=== PATIENT | female | born 1970 | race Caucasian/White ===

== ENCOUNTER 2019-05-18 07:53 | Outpatient (CLI) | payer BC, SELFPAY ==
--- NOTE | 2019-05-18 08:48 | MM_ITS ---
WS: [id number] SCREENING DIGITAL MAMMOGRAM WITH CAD HISTORY: HX OF BREAST CA COMPARISON: 05/24/2017, 04/06/2016. Bilateral CC and MLO views submitted. Computer aided detection analyzed. Breast composition: The breasts are heterogeneously dense, which may obscure small masses. Asymmetry in the inferior LEFT breast seen on the lateral projection measures 5.6 mm. Margins are irr egular and slightly lobulated. May be superimposed fibroglandular tissue. LEFT breast: Spot compression views ( MLO). True ML. Ultrasound to follow if abnormality persists. MM/[place] [id number] IMPRESSION: BI-RADS: 0-Incomplete: Need additional imaging evaluation FOLLOW UP: Need Additional Imaging
== END 2019-05-18 07:54 | disposition home or self-care (01) ==
LOC: RADSHAW 07:59
PROVIDERS: PCP Nurse Practitioner Family; Visit Provider Internal Medicine Medical Oncology
DX: Z85.3 Personal history of malignant neoplasm of breast (principal)
CPT/HCPCS: 77066

== ENCOUNTER 2019-05-31 10:52 | Outpatient (CLI) | payer BC, SELFPAY ==
--- NOTE | 2019-05-31 11:03 | US_ITS ---
WS: [id number] ADDITIONAL VIEWS LEFT MAMMOGRAM LEFT BREAST ULTRASOUND HISTORY: ABNORMAL MAMMOGRAM COMPARISON: 05/18/2019, 05/24/2017, 04/06/2016 and 04/05/2015 LEFT MAMMOGRAM: Spot compression views and true ML. The asymmetry seen in the inferior LEFT breast on the MLO projection persists but does appear less co ncerning. Not definitely seen on the CC projections. Postsurgical scar in the superior portion of the LEFT breast is stable. LEFT BREAST ULTRASOUND 2-D and color Doppler imaging submitted. Ultrasound is directed to the inferior LEFT breast in both the medial and lateral quadrants. No abnor mality is noted within the inferior LEFT breast. US/US breast LT limited* [id number] IMPRESSION: BI-RADS: 2-Benign FOLLOW UP: 1 Year Follow-up The asymmetry seen in the inferior LEFT breast on the MLO projection only does not persist. No abnormality seen by ultrasound either.
== END 2019-05-31 10:53 | disposition home or self-care (01) ==
LOC: ONCMED 10:56
PROVIDERS: PCP Nurse Practitioner Family; Visit Provider Internal Medicine Medical Oncology
DX: R92.8 Other abnormal and inconclusive findings on diagnostic imaging of breast (principal)
CPT/HCPCS: 76642; 77065

== ENCOUNTER 2020-08-28 08:22 | Outpatient (CLI) | payer OTHER, SELFPAY ==
--- NOTE | 2020-08-28 09:12 | MM_ITS ---
WS: [id number] BILATERAL DIAGNOSTIC DIGITAL MAMMOGRAM WITH CAD HISTORY: HX OF BREAST CA COMPARISON: 05/31/2019, 05/24/2017 Bilateral CC, ML and MLO views submitted. Computer aided detection analyzed. Breast composition: There are scattered areas of fibroglandular density. No suspicious masses, microc alcifications or architectural distortion. Postsurgical changes and volume loss in the posterior uppe r LEFT breast. No new or increasing mass or calcification. Stable appearance of the breasts. MM/[place] [id number] IMPRESSION: BI-RADS: 2-Benign FOLLOW UP: 1 Year Follow-up
== END 2020-08-28 08:23 | disposition home or self-care (01) ==
LOC: RADSHAW 08:27
PROVIDERS: PCP Nurse Practitioner Family; Visit Provider Nurse Practitioner Family
DX: Z85.3 Personal history of malignant neoplasm of breast (principal)
CPT/HCPCS: 77066

== ENCOUNTER → 2021-10-15 10:01 | Outpatient (BNVA) | payer OTHER, SELFPAY | PROVIDERS: PCP Nurse Practitioner Family; Visit Provider Emergency Medicine | DX: S92.511A Displaced fracture of proximal phalanx of right lesser toe(s), initial encounter for closed fracture (principal); X58.XXXA Exposure to other specified factors, initial encounter | CPT/HCPCS: 73630 ==

== ENCOUNTER 2021-10-22 11:29 | Outpatient (CLI) | payer OTHER, SELFPAY ==
--- NOTE | 2021-10-22 11:38 | MM_ITS ---
WS: [id number] Exam: [place] [id number] Date/Time of Exam: 10/22/2021 11:38 AM Reason For Exam: HX OF BREAST CA VIEWS: MLO, CC, and ML views both breasts. 3D digital tomosynthesis is also included in this exam. C omparison with previous exams 04/05/2015, 04/06/2016, 05/24/2017, 05/18/2019. Findings: There was no sign of mass, architectural distortion or suspicious calcification in either breast. He terogeneously [place] MM/[place] [id number] Impression: BI-RADS: 2-Benign FOLLOW-UP: 1 Year Follow-up This mammogram was also analyzed by the Computer Aided Detection System R2 Imag e Barrel Filler.
== END 2021-10-22 11:30 | disposition home or self-care (01) ==
LOC: RAD 11:30
PROVIDERS: PCP Nurse Practitioner Family; Visit Provider Nurse Practitioner Family
DX: Z85.3 Personal history of malignant neoplasm of breast (principal)
CPT/HCPCS: 77062

== ENCOUNTER → 2022-05-06 10:32 | Outpatient (BNVA) | payer OTHER, SELFPAY | PROVIDERS: PCP Nurse Practitioner Family; Visit Provider Emergency Medicine | DX: M79.645 Pain in left finger(s) (principal) | CPT/HCPCS: 73140 ==

== ENCOUNTER → 2022-06-29 09:00 | Outpatient (BNVA) | payer OTHER, SELFPAY | PROVIDERS: PCP Nurse Practitioner Family; Visit Provider Nurse Practitioner Family | DX: M25.572 Pain in left ankle and joints of left foot (principal); W19.XXXA Unspecified fall, initial encounter; Y92.009 Unspecified place in unspecified non-institutional (private) residence as the place of occurrence of the external cause; M53.3 Sacrococcygeal disorders, not elsewhere classified; M25.551 Pain in right hip; M25.571 Pain in right ankle and joints of right foot | CPT/HCPCS: 72100; 73502; 73610 ==

== ENCOUNTER → 2022-07-29 09:41 | Outpatient (BNVA) | payer OTHER, SELFPAY | PROVIDERS: PCP Nurse Practitioner Family; Visit Provider Nurse Practitioner Family | DX: I10 Essential (primary) hypertension (principal); M25.571 Pain in right ankle and joints of right foot; G89.29 Other chronic pain; W19.XXXD Unspecified fall, subsequent encounter; Y92.009 Unspecified place in unspecified non-institutional (private) residence as the place of occurrence of the external cause | CPT/HCPCS: 80053; 85025 ==

== ENCOUNTER → 2022-10-19 08:06 | Outpatient (BNVA) | payer OTHER, SELFPAY | PROVIDERS: PCP Nurse Practitioner Family; Referring Provider Anesthesiology Pain Medicine; Visit Provider Specialist | DX: M16.11 Unilateral primary osteoarthritis, right hip (principal) | CPT/HCPCS: 73502 ==

== ENCOUNTER 2022-10-26 08:25 | Outpatient (CLI) | payer OTHER, SELFPAY ==
--- NOTE | 2022-10-26 08:49 | MM_ITS ---
WS: [id number] DIAGNOSTIC BILATERAL DIGITAL BREAST TOMOSYNTHESIS MAMMOGRAPHY WITH CAD HISTORY: Z12.39 - Encounter for other screening for malignant neoplasm... COMPARISON: 10/22/2021, 08/28/2020, 05/31/2019 TECHNIQUE: Bilateral craniocaudad, mediolateral oblique, and mediolateral views are submitted with to mosynthesis and SM. Computer aided detection utilized. Breast composition: The breasts are heterogeneously dense, which may obscure small masses. Postsurgic al changes are noted in the LEFT breast towards the upper outer and posterior breast. Similar to stud y from 05/31/2019. There is an area of mild architectural distortion noted in the RIGHT breast only on the MLO projection. This is in the posterior superior breast near 12:00 and needs further evaluation. MM/[place] [id number] IMPRESSION: BI-RADS: 0-Incomplete: Need additional imaging evaluation FOLLOW UP: Need Additional Imaging RIGHT breast: Spot compression views (attempt posterior CC at 12:00 and MLO). Evangelista FRASER. Ultrasound to follow if abnormality persists.
== END 2022-10-26 08:26 | disposition home or self-care (01) ==
PROVIDERS: PCP Family Medicine; Visit Provider Family Medicine
DX: Z12.39 Encounter for other screening for malignant neoplasm of breast (principal); Z85.3 Personal history of malignant neoplasm of breast; Z98.890 Other specified postprocedural states
CPT/HCPCS: 77062; G0279

== ENCOUNTER 2022-11-10 08:38 | Outpatient (CLI) | payer OTHER, SELFPAY ==
--- NOTE | 2022-11-10 09:30 | MR_ITS ---
WS: [id number] EXAMINATION: MR hip RT wo con* [id number] ORDER DATE: 11/10/2022 9:38 AM COMPARISON: None. HISTORY: right hip pain CONTRAST: None. TECHNIQUE: Coronal STIR of the Pelvis. Coronal proton density, coronal T1, axial T2 fat sat, axial T1 , sagittal T2 fat sat, and sagittal T1 performed of the hip. After contrast, axial T1 fat sat, coron al T1 fat sat, and sagittal T1 fat sat were performed. FINDINGS: Advanced degenerative arthritis right hip with advanced joint space narrowing. Ldkz-sl-cxsk articulat ion with hypertrophic changes along the joint line. Subchondral cystic changes involving the femoral head and adjacent acetabulum. Serpiginous low-attenuation change right femoral head involving the articular surface compatible with avascular necrosis. No significant collapse. Moderate degenerative arthritis left hip with joint space narrowing. No significant edema. Normal vis ualized pubic rami. IMPRESSION: 1. Advanced degenerative arthritis right hip with [id number]-[id number] articulation and subchondral cystic c hanges involving the femoral head and adjacent acetabulum. 2. Evidence of avascular necrosis right femoral head. No significant collapse. 3. Moderate degenerative arthritis left hip.
== END 2022-11-10 08:39 | disposition home or self-care (01) ==
LOC: RAD 08:41
PROVIDERS: PCP Family Medicine; Visit Provider Specialist
DX: M16.10 Unilateral primary osteoarthritis, unspecified hip (principal); M16.11 Unilateral primary osteoarthritis, right hip
CPT/HCPCS: 73721

== ENCOUNTER 2022-11-13 07:55 | Outpatient (CLI) | payer OTHER, SELFPAY ==
--- NOTE | 2022-11-13 08:45 | MR_ITS ---
WS: [id number] MRI LUMBAR SPINE NONCONTRAST TECHNIQUE: Sagittal T1, T2 and STIR imaging. Axial T1 and T2 imaging. CLINICAL INFORMATION: M54.16 - Radiculopathy, lumbar region COMPARISON: None. FINDINGS: Mild lumbar curve. No acute compression. No high-grade central canal stenosis. Hemangioma T12 vertebr al body. L1-L2: Normal. L2-L3: Mild annular bulging. Tiny annular fissure. Slight effacement of the ventral thecal sac. Mild facet arthropathy. Spinal canal and foramen are patent. L3-L4: Mild annular bulging with slight narrowing of the subarticular recess bilaterally. Tiny annula r fissure. Moderate facet arthropathy. Spinal canal and foramen are patent. L4-L5: Mild annular bulging. Slight narrowing of the right greater than left subarticular recess. For amen are patent. Moderate facet arthropathy. L5-S1: Disc space narrowing with mild disc bulging. Tiny central protrusion. Slight effacement of the ventral thecal sac. Spinal canal and foramen are patent. Moderate facet arthropathy. Visualized pelvic bony structures: Normal. Paravertebral soft tissues: Normal. IMPRESSION: * Mild lumbar curve. No acute compression. No high-grade central canal stenosis. * Incidental benign hemangioma T12 vertebral body. * Mild annular bulging with tiny annular fissures L2-3 and L3-4 with slight effacement of the ventra l thecal sac and slight narrowing of the subarticular recess. * Mild annular bulging L4-5 with slight narrowing of the right greater than left subarticular recess . * Mild facet arthropathy L3-L5. * Disc base narrowing L5-S1 with mild disc bulging and tiny central protrusion. Spinal canal remains patent.
== END 2022-11-13 07:56 | disposition home or self-care (01) ==
LOC: RAD 08:00
PROVIDERS: PCP Family Medicine; Visit Provider Anesthesiology Pain Medicine
DX: M54.16 Radiculopathy, lumbar region (principal); M51.37 Other intervertebral disc degeneration, lumbosacral region; M47.817 Spondylosis without myelopathy or radiculopathy, lumbosacral region
CPT/HCPCS: 72148

== ENCOUNTER 2022-11-24 08:46 | Outpatient (CLI) | payer OTHER, SELFPAY ==
--- NOTE | 2022-11-24 09:15 | MM_ITS ---
WS: [id number] ADDITIONAL VIEWS RIGHT MAMMOGRAM WITH DIGITAL BREAST TOMOSYNTHESIS. RIGHT BREAST ULTRASOUND HISTORY: ABNORMAL MAMMO COMPARISON: 10/26/2022, 10/22/2021 RIGHT MAMMOGRAM: Spot compression views and true ML with digital breast tomosynthesis and SM. The distortion and asymmetry nearly completely resolves. No calcifications. No skin thickening. Ultra sound will be also performed to exclude subtle remaining finding. RIGHT BREAST ULTRASOUND 2-D and color Doppler imaging submitted. Ultrasound directed to the upper outer quadrant of the RIGHT breast. No suspicious masses. There is n o shadowing or distortion. IMPRESSION: MM/[place] [id number] BI-RADS: 2-Benign FOLLOW UP: 1 Year Follow-up
== END 2022-11-24 08:47 | disposition home or self-care (01) ==
PROVIDERS: PCP Family Medicine; Visit Provider Family Medicine
DX: R92.8 Other abnormal and inconclusive findings on diagnostic imaging of breast (principal)
CPT/HCPCS: 76642; 77061; G0279

== ENCOUNTER → 2022-12-07 09:51 | Outpatient (BNVA) | payer OTHER, SELFPAY | PROVIDERS: PCP Family Medicine; Visit Provider Specialist | DX: M16.11 Unilateral primary osteoarthritis, right hip (principal); M87.051 Idiopathic aseptic necrosis of right femur | CPT/HCPCS: 73502 ==

== ENCOUNTER 2023-01-04 10:34 | Outpatient (CLI) | payer OTHER, SELFPAY ==
[2023-01-04 10:54] LABS: Add Urine Microscopic? NO; Charge for UA Resulting for Rev
[2023-01-04 10:59] LABS: Basophils # 0.1 10^3/uL (0.0-0.1); Basophils % 0.6 %; Eosinophils # 0.2 10^3/uL (0.0-0.8); Eosinophils % 1.6 %; Hematocrit 42.5 % (36-47); Lymphocytes # 2.8 10^3/uL (0.8-4.8); Lymphocytes % 25.7 %; Mean Corpuscular HGB Conc 32.7 g/dL (30-55); Mean Corpuscular Hemoglobin 28.2 pg (27-33); Mean Corpuscular Volume 86.2 fl (85-98); Mean Platelet Volume 9.1 fL (7.4-10.4); Monocytes # 0.8 10^3/uL (0.2-0.9); Monocytes % 6.8 %; Neutrophils % 64.8 %; Nucleated Red Blood Cells % 0 %; Platelet Count 239 10^3/cmm (157-399); Red Blood Count 4.93 10^6/uL (3.85-5.65); Red Cell Distribution Width 13.2 % (12.1-15.1); White Blood Count 10.98 10^3/uL (3.29-11.43)
[2023-01-04 11:06] LABS: Bilirubin Urine Neg (Negative); Blood Urine Neg (Negative); Glucose Urine UA Norm (Normal); Ketones Urine Negative (Negative); Leukocyte Esterase Urine Negative (Negative); Nitrate Urine Negative (Negative); Protein Urine Neg (Negative); Specific Gravity, Urine 1.015 (1.005-1.030); Urine Appearance Clear (CLEAR); Urine Color Straw (Yellow); Urobilinogen Urine Norm (Negative); pH Urine 6 (5-7)
[2023-01-04 11:18] LABS: Alanine Aminotransferase 22 U/L (0-33); Albumin Level 4.2 g/dL (3.5-5.2); Alkaline Phosphatase 79 U/L (35-105); Aspartate Amino Transferase 22 U/L (0-32); Blood Urea Nitrogen 17 mg/dL (6-20); Calcium 10.5 mg/dL (8.5-10.5); Carbon Dioxide 30 mmol/L (22-29); Chloride 100 mmol/L (98-107); Globulin 2.5 g/dL (1.3-4.6); Glucose 90 mg/dL (65-115); Osmolality Calculated 283 mOsm/kg (285-295); Sodium 136 mmol/L (136-145); Total Bilirubin 0.4 mg/dL (0.15-1.2); Total Protein 6.7 g/dL (6.6-8.7)
[2023-01-04 11:38] LABS: Estmated Average Glucose 97
== END 2023-01-04 10:35 | disposition home or self-care (01) ==
LOC: LAB 10:37
PROVIDERS: PCP Family Medicine; Visit Provider Specialist
DX: M16.11 Unilateral primary osteoarthritis, right hip (principal)
CPT/HCPCS: 36415; 80053; 81003; 83036; 85025

== ENCOUNTER 2023-01-19 09:01 | Observation (INO) | payer OTHER, SELFPAY ==
[2023-01-19] VITALS (18 sets, daily range): BP systolic 93–138; BP diastolic 60–97; PULSE 50–71; RESP 13–20; TEMP 36.1–36.7; O2SAT 92–100; BMI 25.0
[2023-01-19] MEDS: sodium chloride 0.9% 1,000 ML 30 ML IV (06:14)
[2023-01-19] MEDS: acetaminophen 1,000 MG/100 ML PIGGYBACK 400 MG IV ×3 (06:15→23:38)
--- NOTE | 2023-01-19 06:59 | P.HPUD_ITS ---
Surgery/Procedure H&P Update DATE OF PROCEDURE: January 19, 2023 DATE H&P PERFORMED: 01/11/23 H&P UPDATE INFORMATION: I have reviewed H&P completed within last 30 days, I have examined patient prior to procedure, No changes to prior documentation and H&P is in [facility] [place] EMR on date indicated PREOP DIAGNOSIS: Avascular necrosis right hip PLANNED PROCEDURE: Operation Date: 01/19/23 07:00 Proposed Procedures p RIGHT TOTAL HIP ARTHROPLASTY 58200,M16.9(Right) - Daiana Maldonado MD Related Problem List Diagnoses (1) Avascular necrosis of bone of right hip:
[2023-01-19] MEDS: ceFAZolin 2,000 MG in sodium chloride 0.9% (plus) 50 ML 100 MG IV ×3 (07:00→23:38)
--- NOTE | 2023-01-19 07:36 | ANES.PREANE2 ---
Pre-Anesthetic Assessment Height/Weight: Height 1.68 m Weight 70.307 kg Temp Pulse Resp BP Pulse Ox O2 Del Method 97 F L 68 18 138/97 100 Room Air 01/19/23 06:02 01/19/23 06:02 01/19/23 06:02 01/19/23 06:02 01/19/23 06:02 01/19/23 06:02 Preop Diagnosis: Avascular necrosis right hip Operation Date: 01/19/23 07:00 Proposed Procedures p RIGHT TOTAL HIP ARTHROPLASTY 24305,M16.9(Right) - Daiana Maldonado MD Familial anesthetic complications: none Was Beta Roddy taken within 24 hours: N/A Was Clonidine taken within 24 hours: N/A Last intake: Intake Last Liquid Date 01/18/23 Last Liquid Time 18:00 Last Solid Date 01/18/23 Last Solid Time 17:00 Social No alcohol and No tobacco Exam alert, oriented x 3, clear to auscultation bilaterally and regular rate & rhythm Airway Submandibular: within normal limits Cervical ROM: within normal limits Mallampati: Class II Dentition: full CV/HEM Hypertension Musc/skel Lower Back Pain and Osteoarthritis/DJD h/o discectomy Anesthetic Plan ASA status: 2 Anesthesia: Regional (specify below) (SAB) Medications/Allergies Home Medications Medication Instructions Recorded Confirmed Last Taken Type lisinopril 10 mg tablet 10 mg PO DAILY 90 days #90 tabs 10/05/22 01/18/23 01/18/23 Rx cholecalciferol (vitamin D3) 25 25 mcg PO DAILY 12/01/22 01/18/23 Unknown History mcg (1,000 unit) capsule multivitamin 1 tab PO DAILY 12/01/22 01/18/23 01/11/23 History Allergies Allergy/AdvReac Type Severity Reaction Status Date / Time aspirin Allergy Severe ADR-Vomitin Verified 01/11/23 11:02 g bee venom protein (honey bee) Allergy Intermediate ALGY-Anaphy Verified 01/11/23 11:02 laxis Pork/Porcine Containing Allergy Intermediate ADR-Vomitin Verified 01/11/23 11:02 Products g olive oil Allergy ADR-Vomitin Verified 01/19/23 05:58 g Current Medications Generic Name Dose Route Start Last Admin Trade Name Freq PRN Reason Stop Dose Admin Sodium Chloride 1,000 mls @ 30 mls/hr 01/19/23 06:00 01/19/23 06:14 Sodium Chloride 0.9% IV 01/20/23 05:59 30 mls/hr .Q24H SHEMAR Administration PFSH Anesthesia Medical History Back pain with history of spinal surgery 2007 Breast cancer Surgical History History of total hysterectomy Social History Smoking and tobacco/nicotine status: never used tobacco/nicotine Second hand smoke exposure: No Alcohol intake: never Substance/Drug Use: never Data Anesthesia Cardiac Studies: No Data to Display
[2023-01-19] MEDS: vancomycin 1,000 MG SDV 1000 MG XX (08:21)
[2023-01-19] MEDS: ceFAZolin 1,000 mg SDV 1000 MG IRRIGATION ×2 (08:22→08:44)
--- NOTE | 2023-01-19 09:37 | XR_ITS ---
WS: [id number] Exam: XR pelvis 1-2V* [id number] Date/Time of Exam: 01/19/2023 9:40 AM Reason For Exam: Status post right total hip arthroplasty Comparison 12/07/2022. A RIGHT total hip replacement is noted. Postoperative changes in the adjacent soft tissues. The LEFT hip is unremarkable. IMPRESSION: 1. RIGHT total hip replacement.
--- NOTE | 2023-01-19 09:42 | PM.OP ---
Operative Report Date of procedure: January 19, 2023 Pre-op diagnosis: Severe degenerative osteoarthritis of the right hip with avascular necrosis Post-op diagnosis: Severe degenerative osteoarthritis of the right hip with avascular necrosis Post-op findings: Severe degenerative osteoarthritis of the right hip secondary to avascular necrosis Procedure done: Right total hip arthroplasty Implants: The [place] total hip system with a size 54 mm by E alpha code Trident II Tritanium acetabular shell with an MDM liner size 42 mm inner diameter by E alpha code.? A size 5 Accolade II 127? neck angle hip stem with a size 28 mm x -2.7 mm femoral head and a hoahaoism MDM X3 insert size 42E Specimens removed/disposition: Femoral head sent to pathology for microscopic evaluation Surgeon: Daiana Maldonado MD Blueprint Trimmer: Nohemi Hammond NP, who was necessary for positioning, retraction, and manipulation of the leg. Anesthesia: Spinal (With MAC, ASA 2) Estimated blood loss (mL): 200 IV fluids (mL): 700 Urine output (mL): 100 Complications: None Findings: Severe degenerative osteoarthritis. The hip was stable at 90 degrees of flexion with 90 degrees of internal rotation and 30 degrees of adduction, it was also stable to toe hang. It was stable to external rotation. Condition: stable Disposition: PACU (Then return to floor for postoperative rehabilitation and pain management) Brief History: This 52-year-old woman presented to my office with severe pain and limitations in activities of daily living. Any hip range of motion was exceedingly painful for her. The patient had x-rays demonstrating cystic changes within the femoral head and complete obliteration of joint space. There also was noted to be some medial femoral head collapse. MRI was found to be consistent with avascular necrosis of the right femoral head as well as degenerative arthritis of the hip. After discussion in the office, the patient wished to proceed with total hip arthroplasty. The patient wished to proceed with total hip arthroplasty. Risks and complications were discussed in detail. Consents were signed. Procedure: Patient was brought to the operating theater.? She was transferred to the operating room table and subsequently administered a spinal anesthesia with MAC, ASA 2.? Following administration of adequate anesthesia, the patient was placed in full lateral position and held in position with a pegboard.? The patient's right lower extremity was then prepped and draped in usual fashion utilizing DuraPrep.? It was draped free.? Following prepping and draping, a surgical pause was performed.? At the time of surgical pause, we identified the site and side of surgery.? We also identified the patient and preoperative surgical markings.?The patient's operative leg was compared to the opposite leg.? Confirmation was made of equipment availability.? Additionally, the patient's preoperative IV antibiotic, Ancef 2 g, and TXA administration was confirmed as well.? X-rays were also reviewed. Following the surgical pause, an incision was made centering over the patient's greater trochanter continuing proximally and distally as necessary to allow access to the hip joint.? Dissection continued through skin and soft tissues using a scalpel, and hemostasis was obtained using electrocautery. The tensor fascia da was identified and incised longitudinally but there was minimal fascial component to the tensor tissues.? Sciatic nerve was identified and protected throughout the surgical procedure.? A Charnley U retractor was placed after the tensor fascia da had been incised longitudinally, and the sciatic nerve had been identified.? The hip was internally rotated, and the piriformis muscle was identified and tagged. Piriformis muscle along with the remaining short external rotators were then incised from the posterior aspect of the hip joint.? These were retracted posteriorly.? The capsule was entered in a T-type fashion with the edges being tagged, and subsequently the hip was dislocated.? The labrum was excised with further excision accomplished once the femoral head was removed.? Following hip dislocation, a femoral neck osteotomy was accomplished in the appropriate position.? The head was measured, but it was quite deformed.? Subsequently, it was sent to pathology for microscopic evaluation.? We then evaluated the acetabulum. The femur was retracted anteriorly.? Soft tissues were retracted, and the labrum was removed.? We then began reaming.? Once the femoral head was removed, there was noted to be significant loss of cartilage over the head with the previously noted deformity and within the acetabulum.? We reamed to a size 53 to allow for a size 54 acetabular shell.? The acetabulum was impacted into position.? The MDM liner was then impacted into position with care being taken to assure it seated appropriately.? It was noted that the acetabulum matched the bony anatomy.? The cup was noted to seat nicely and had good fixation upon impact. Attention was directed to the proximal femur.? The proximal femur was lifted out of the wound.? A canal finder was passed after the box chisel.? The reamer was used to lateralize.? We then began broaching. We broached sequentially and had excellent fit and fill with the size 5 broach. ? A trial reduction was attempted with a +0 mm femoral head initially, but this was too tight. We then placed a -4 millimeter femoral head which initially was difficult to reduce, but following movement of the hip, it was noted to loosen up slightly. Therefore, we elected to again perform trial reduction after the femoral component was placed.? With this construct, with the final trial, the hip was noted to be stable, and leg length was felt to be equal.? The final construct included a -2.7 mm femoral head with the above-noted stem and acetabulum. With this in place, we had the above stabilities.? This was felt to be excellent stability. Therefore, trial components were removed after the hip was dislocated.? The size 5 Accolade II 127? neck angle stem was impacted into position without difficulty and onto this was placed a -2.7 mm x 28 mm femoral head which had been assembled into the MDM insert size 42E.? With a -2.7 mm femoral head, we had the above-noted stability.? The stem was noted to seat nicely prior to placement of the femoral head.? The wound was copiously irrigated with 20 mL of Betadine and 500 mL of normal saline mixed together.? Subsequently, we suctioned this out and irrigated the wound copiously with lactated Ringer's.? At this time, with all components in appropriate position, the hip was reduced.? Following reduction of the prosthesis once again, we confirmed the stability of the hip.? Leg lengths were also felt to be satisfactory. Being satisfied with the prosthesis, attention was directed to closure.? Closure was accomplished with 0 Vicryl in the capsular tissues.? Piriformis was reattached with 0 Vicryl as well.? Tensor fascia da was closed with 0 Vicryl in an interrupted fashion.? The subcutaneous tissues were closed with 2-0 Monocryl.? Vancomycin powder and a Gelfoam thrombin mixture was placed into the wound as well.? The skin was closed with a running 3-0 Monocryl followed by Eliza Barrios followed by Roman.? The patient was placed in an abduction pillow.? She was returned the Recovery Room in a satisfactory condition and will be discharged to the floor for ostoperative rehabilitation and pain management.? There were no complications or specimens. Related Problem List Diagnoses (1) Avascular necrosis of bone of right hip: (2) Osteoarthritis of right hip:
[2023-01-19] MEDS: oxyCODONE 5 mg IR Tab/Cap PO ×3 (11:19→22:05)
[2023-01-19] MEDS: CELEcoxib 200 mg Capsule PO ×2 (11:19→23:38)
[2023-01-19] MEDS: chlorhexidine gluconate 0.12% Btl 473 mL 30 ML MUCOUS MEM ×3 (15:21→23:37)
--- NOTE | 2023-01-19 16:53 | ANE.PACU2 ---
Inpatient post-anesthesia follow up: Airway intact: Yes Vital signs: Temperature 98.1 F Pulse Rate 52 Respiratory Rate 16 Blood Pressure 93/61 Pulse Oximetry 94 Oxygen Delivery Me thod Room Air Oxygen Flow Rate 6 Fraction of Inspir ed Oxygen Hydration adequate: Yes Nausea and vomiting: No Pain level: 1 Mental status: Baseline
[2023-01-19] MEDS: mupirocin oint 22 gm 1 APPLIC NASAL (18:04)
[2023-01-19] MEDS: sennosides-docusate Tablet 2 TAB PO (18:04)
[2023-01-19] MEDS: calcium carbonate 500 mg Chew Tablet 1000 MG PO (18:04)
[2023-01-19] MEDS: iron polysaccharide complex 150 mg Capsule PO (18:04)
[2023-01-19] MEDS: enoxaparin 40 mg/0.4 mL Syringe SUBCUT (22:06)
[2023-01-20] VITALS (10 sets, daily range): BP systolic 96–121; BP diastolic 59–75; PULSE 61–71; RESP 15–18; TEMP 36.6–36.8; O2SAT 92–99
[2023-01-20] MEDS: oxyCODONE 5 mg IR Tab/Cap PO ×4 (02:43→16:27)
[2023-01-20 05:48] LABS: Basophils % 0.2 %; Hematocrit 35.6 % (36-47); Lymphocytes # 1.2 10^3/uL (0.8-4.8); Mean Corpuscular HGB Conc 32.6 g/dL (30-55); Mean Corpuscular Hemoglobin 28.2 pg (27-33); Mean Corpuscular Volume 86.4 fl (85-98); Mean Platelet Volume 9.7 fL (7.4-10.4); Monocytes % 8.3 %; Neutrophils # 9.65 10^3/uL (1.8-7.7); Nucleated Red Blood Cells % 0 %; Platelet Count 174 10^3/cmm (157-399); Red Blood Count 4.12 10^6/uL (3.85-5.65); Red Cell Distribution Width 13.3 % (12.1-15.1); White Blood Count 11.91 10^3/uL (3.29-11.43)
[2023-01-20] MEDS: acetaminophen 1,000 MG/100 ML PIGGYBACK 400 MG IV (06:05)
[2023-01-20] MEDS: ceFAZolin 2,000 MG in sodium chloride 0.9% (plus) 50 ML 100 MG IV (06:06)
[2023-01-20 06:15] LABS: Anion Gap 10.4 (5-19); Blood Urea Nitrogen 16 mg/dL (6-20); Calcium 10.9 mg/dL (8.5-10.5); Carbon Dioxide 26 mmol/L (22-29); Chloride 107 mmol/L (98-107); Glomerular Filtration Rate 65.5 mL/min (90-130); Glucose 106 mg/dL (65-115); Osmolality Calculated 290 mOsm/kg (285-295); Potassium 4.4 mmol/L (3.5-5.1); Sodium 139 mmol/L (136-145)
[2023-01-20] MEDS: sennosides-docusate Tablet 2 TAB PO (08:27)
[2023-01-20] MEDS: calcium carbonate 500 mg Chew Tablet 1000 MG PO (08:27)
[2023-01-20] MEDS: multivitamin therapeutic Tablet 1 TAB PO (08:27)
[2023-01-20] MEDS: lisinopril 10 mg Tablet PO (08:27)
[2023-01-20] MEDS: iron polysaccharide complex 150 mg Capsule PO (08:27)
[2023-01-20] MEDS: chlorhexidine gluconate 0.12% Btl 473 mL 30 ML MUCOUS MEM ×2 (08:28→14:18)
[2023-01-20] MEDS: cholecalciferol (vitamin D3) 1,000 unit Tablet 1000 UNIT PO (08:28)
[2023-01-20] MEDS: mupirocin oint 22 gm 1 APPLIC NASAL (08:33)
--- NOTE | 2023-01-20 11:00 | PC.CHAP ---
Pastoral Care Encounter/Spiritual Assessment Type of Contact [] Declined consulting manager visit [] Patient/Family/Request visit [] Outpatient visit [] Follow-up visit [] Physician referral [] Code/Alert [x] Routine visit [] Staff referral [] Actively dying [] Patient sleeping [] Family support [] [] Out of room [] Palliative care [] [] Receiving care in room [] Pre-surgical visit [] Trauma [] Long length of stay [] ICU visit [] Other: Relational/Emotional Strength [x] Patient feels connected with others/family/visitors/staff [] Distress [] Loneliness/isolation [] Abandonment Spirituality of Patient [] Person of [place] [] Attends Orthodoxy of their [place] [] Believes in Prayer [] Reads Bible or Advent materials [] There are Spiritual issues to be addressed Social Science Teacher Interventions [x] Prayer [] Active listening [] Non-anxious presence [] Spiritual/emotional support [] Crisis/trauma care [] Spiritual counseling [] Bereavement support [] Provided bereavement packet [] Provided Bible/devotional materials [] Provided toy/stuffed animal, coloring book to patient or family member [] Provided Communion [] Anointing/[place] [] Salvation [] Completed spiritual assessment [] Other: Impact on Illness or Injury [] Angry [] Fearful [] Anxious [] Often cries [] Exhaustion [] Unable to work [] Unable to attend judaism [] Unable to walk/stand [] Unable to read [] Unable to drive [] Unable to eat/drink [] Unable to sleep [] Unable to be with family [] Patient intubated [] Other: Summary Time spent with patient 15 min
[2023-01-20] MEDS: CELEcoxib 200 mg Capsule PO (12:03)
[2023-01-20] MEDS: acetaminophen 500 mg Tablet 1000 MG PO (14:17)
--- NOTE | 2023-01-20 14:39 | P.DS_ITS ---
Discharge Providers Date of Admission: 01/19/23 09:01 Date of Discharge: January 20, 2023 Attending Provider at Admission: Daiana Maldonado MD Attending Provider at Discharge: Daiana Maldonado MD Primary Care Provider: Belinda Rogel MD Diagnoses at Discharge Discharge Diagnosis (1) Avascular necrosis of bone of right hip: Status: Acute (2) Osteoarthritis of right hip: Status: Acute Qualifiers: Osteoarthritis type: primary Qualified Code(s): M16.11 - Unilateral primary osteoarthritis, right hip (3) S/P total right hip arthroplasty: Status: Acute Permanent problem details: Date of procedure: January 19, 2023 Diagnosis: Severe degenerative osteoarthritis of the right hip with avascular necrosis Procedure done: Right total hip arthroplasty Implants: The Humza total hip system with a size 54 mm by E alpha code Trident II Tritanium acetabular shell with an MDM liner size 42 mm inner diameter by E alpha code. A size 5 Accolade II 127? neck angle hip stem with a size 28 mm x - 2.7 mm femoral head and a christian MDM X3 insert size 42E Reason for Visit Reason for Visit: M16.9 Brief History: This 52-year-old woman presented to my office with severe pain and limitations in activities of daily living.? Any hip range of motion was exceedingly painful for her.? The patient had x-rays demonstrating cystic changes within the femoral head and complete obliteration of joint space.? There also was noted to be some medial femoral head collapse.? MRI was found to be consistent with avascular necrosis of the right femoral head as well as degenerative arthritis of the hip.? After discussion in the office, the patient wished to proceed with total hip arthroplasty.? The patient wished to proceed with total hip arthroplasty.? Risks and complications were discussed in detail.? Consents were signed. Hospital Course Hospital Course Patient was admitted under observation status following right total hip arthroplasty for avascular necrosis. She did well following the surgical procedure. She was able to work with physical therapy and was independent and appropriate for discharge to home. There was no evidence of DVT. There was no other complication noted. Dressing was dry and intact. She was given instructions and posterior hip precautions per physical therapy and was discharged home on postop day 1. Physical Exam Const: COMMON NORMALS: no acute distress, average body habitus, patient oriented x3 and alert GENERAL APPEARANCE: cooperative and comfortable ORIENTATION/CONSCIOUSNESS: Yes awake HENMT: COMMON NORMALS: normocephalic and atraumatic HEAD & SCALP: normocephalic and atraumatic Eye: GENERAL EYE: appearance normal, both eyes and all related structures Chest: COMMONS NORMALS: normal inspection of the chest Resp: COMMON NORMALS: normal respiratory effort EFFORT & INSPECTION: Yes able to speak in complete sentences and Yes symmetric chest movement Extremity: RIGHT LOWER EXTREMITY: Yes hip joint (Dressing is dry and intact.) Right hip: Yes palpation (Minimal tenderness.), Yes ROM (Not evaluated.) and Yes neurovascular exam (No evidence of DVT.) Neuro: COMMON NORMALS: patient oriented x3 SENSORIUM/ORIENTATION: Yes alert Psych: COMMON NORMALS: mental status grossly normal APPEARANCE: Yes grossly normal ATTITUDE: Yes calm and Yes engaged ATTENTION/CONCENTRATION: Yes attention grossly intact Skin: COMMON NORMALS: no rashes or lesions noted GENERAL SKIN EXAM: no rashes or lesions noted Urinary Catheter Management: Wyatt: Cath Placed During This Visit: yes, but has since been removed by the nurse Reason for Continuing Indwelling Catheter: Decision to DC Catheter Urinary Catheter Date of Insertion: 01/19/23 Urinary Catheter Time of Insertion: 07:30 Date Urinary Catheter Removed: 01/20/23 Time Urinary Catheter Discontinued: 06:36 Discharge Data Studies Completed and Pending Completed Studies During Hospitalization Category Date Time Status XR pelvis 1-2V* [id number] Routine Exams 01/19/23 09:37 Completed Pending at discharge Category Date Time Status Abscess Culture and Gram Stain Routine Lab 01/19/23 08:09 Results Anaerobic Culture Routine Lab 01/19/23 08:09 Results Pathology: Surgical [PTH] Routine Pth 01/19/23 08:25 Received Laboratory Results WBC 11.91 10^3/uL (3.29-11.43) H 01/20/23 05:10 RBC 4.12 10^6/uL (3.85-5.65) 01/20/23 05:10 Hgb 11.60 g/dL (11.27-16.99) 01/20/23 05:10 Hct 35.6 % (36-47) L 01/20/23 05:10 MCV 86.4 fl (85-98) 01/20/23 05:10 MCH 28.2 pg (27-33) 01/20/23 05:10 MCHC 32.6 g/dL (30-55) 01/20/23 05:10 RDW 13.3 % (12.1-15.1) 01/20/23 05:10 Plt Count 174 10^3/cmm (157-399) 01/20/23 05:10 MPV 9.7 fL (7.4-10.4) 01/20/23 05:10 Neut % (Auto) 81.0 % 01/20/23 05:10 Lymph % (Auto) 10.0 % 01/20/23 05:10 Toombs % (Auto) 8.3 % 01/20/23 05:10 Eos % (Auto) 0.0 % 01/20/23 05:10 Baso % (Auto) 0.2 % 01/20/23 05:10 Neut # (Auto) 9.65 10^3/uL (1.8-7.7) H 01/20/23 05:10 Lymph # (Auto) 1.2 10^3/uL (0.8-4.8) 01/20/23 05:10 Toombs # (Auto) 1.0 10^3/uL (0.2-0.9) H 01/20/23 05:10 Eos # (Auto) 0.0 10^3/uL (0.0-0.8) 01/20/23 05:10 Baso # (Auto) 0.0 10^3/uL (0.0-0.1) 01/20/23 05:10 Nucleated RBC % (auto) 0 % 01/20/23 05:10 Nucleated RBCs # 0.0 /100WBC 01/20/23 05:10 Sodium 139 mmol/L (136-145) 01/20/23 05:10 Potassium 4.4 mmol/L (3.5-5.1) 01/20/23 05:10 Chloride 107 mmol/L (98-107) 01/20/23 05:10 Carbon Dioxide 26 mmol/L (22-29) 01/20/23 05:10 Anion Gap 10.4 (5-19) 01/20/23 05:10 BUN 16 mg/dL (6-20) 01/20/23 05:10 Creatinine 0.9 mg/dL (0.5-0.9) 01/20/23 05:10 GFR Calculation 65.5 mL/min (90-130) L 01/20/23 05:10 Glucose 106 mg/dL (65-115) 01/20/23 05:10 Calculated Osmolality 290 mOsm/kg (285-295) 01/20/23 05:10 Calcium 10.9 mg/dL (8.5-10.5) H 01/20/23 05:10 Vitals Last Vital Signs Temp 97.8 F 01/20/23 11:24 Pulse 66 01/20/23 11:24 Resp 18 01/20/23 12:05 BP 96/60 01/20/23 11:24 Pulse Ox 99 01/20/23 12:05 O2 Del Method Room Air 01/20/23 11:24 O2 Flow Rate 6 01/19/23 09:31 Discharge Plan Discharge Patient Disposition: Home Health Service Condition: Stable Prescriptions: New celecoxib 200 mg Capsule 200 mg PO 1XD 30 Days Qty: 30 0RF acetaminophen 500 mg Tablet 1,000 mg PO Q8H 15 Days Qty: 90 0RF oxycodone 5 mg Tablet 5 mg PO Q4H PRN (Reason: Moderate Pain) 7 Days Qty: 30 0RF enoxaparin 40 mg/0.4 mL Syringe 40 mg SUBCUT Q24H 14 Days Qty: 5.6 0RF Continued lisinopril 10 mg tablet 10 mg PO DAILY 90 Days Qty: 90 1RF multivitamin Tablet 1 tab PO DAILY cholecalciferol (vitamin D3) 25 mcg (1,000 unit) capsule 25 mcg PO DAILY Discharge Orders: Discharge Order (Routine); Ordered 01/20/23 Ordered By: Daiana Maldonado Other Ambulatory Orders: Physical Therapy Eval and Treat Outpatient (Order) Timeframe: 3 Days Facility: [facility] - Location: Physical Therapy [facility] Ordered By: Daiana Maldonado Referrals: Daiana Maldonado MD [Physician] - 02/03/23 8:15 am Discharge Diet: Advance as tolerated and Usual diet Discharge Activity: Increase activity as tolerated, Limit activity as instructed, Use walker/crutches as instructed and As per PT/OT instructions Patient Instructions: Oxycodone, Rapid Release (By mouth), Enoxaparin (By injection), Celecoxib (By mouth), Total Hip Replacement (GEN), Joint Replacement Stoplight, Opioid Safety Activity Restrictions/Additional Instructions: Posterior hip precautions as instructed by physical therapy. You may shower, but do not sit in a bathtub. Maintain the dressing in place until it comes off on its own or is taken off in the clinic. Ice to right hip. Be sure to obtain all ice bags from the hospital prior to your discharge. Discharge Attestations Time Spent in Discharge Care*: greater than 30 min Specific Discharge Activities: educating patient, educating and/or supporting family/caregiver, documenting/other paperwork and evaluating patient/reviewing data Quality Metrics Clinical Quality Measures [ No reported AMI, CVA or VTE this stay] Coding Level of Care Code Acute Code for [facility] Fwd Diagnoses Avascular necrosis of bone of right hip M87.051 Osteoarthritis of right hip M16.11 Osteoarthritis type: primary S/P total right hip arthroplasty Z96.641
--- NOTE | 2023-01-20 17:02 | PC.NURSE ---
Discussed discharge paperwork, new medications, continued medications and follow up appointments. Patient was instructed and did a teach back with this nurse for Lovenox shots for 14 days. Patient demonstrated with actions correctly. Spouse was also instructed and demonstrated as well. Patient verbalized understanding for discharge, medications and Lovenox injections.
--- NOTE | 2023-02-11 14:18 | PM.OP ---
Operative Report Date of procedure: February 11, 2023 Pre-op diagnosis: Severe degenerative osteoarthritis of the right hip with avascular necrosis Surgeon: Daiana Maldonado MD
== END 2023-01-20 16:35 | disposition home health service (06) ==
LOC: MEDSURG 09:02
PROVIDERS: Admitting Provider Specialist; PCP Family Medicine; Visit Provider Specialist
PROC: (CPT 27130; principal; 2023-01-19 07:00)
DX: M16.11 Unilateral primary osteoarthritis, right hip (principal); M87.850 Other osteonecrosis, pelvis; I10 Essential (primary) hypertension; Z85.3 Personal history of malignant neoplasm of breast
CPT/HCPCS: 27130; 36415; 51702; 72170; 80048; 85025; 87070; 87075; 87205; 88304; 88311; 96372; 97116; 97161; 97165; 97530; C1776; G0378; J0131; J0690; J1650; J2250; J2371; J2405; J2704; J3370; J3490; J7030

== ENCOUNTER 2023-01-27 06:00 | Outpatient (RCR) | payer OTHER, SELFPAY | END 2023-02-25 23:59 | disposition home or self-care (01) | LOC: MPT 06:00 | PROVIDERS: Visit Provider Specialist | DX: M16.11 Unilateral primary osteoarthritis, right hip (principal) | CPT/HCPCS: 97110; 97162 ==

== ENCOUNTER → 2023-02-03 08:05 | Outpatient (BNVA) | payer OTHER, SELFPAY | PROVIDERS: Visit Provider Nurse Practitioner | DX: Z96.641 Presence of right artificial hip joint (principal); M87.051 Idiopathic aseptic necrosis of right femur | CPT/HCPCS: 73502 ==

== ENCOUNTER 2023-02-26 06:00 | Outpatient (RCR) | payer OTHER, SELFPAY | END 2023-03-28 23:59 | disposition home or self-care (01) | LOC: MPT 06:00 | PROVIDERS: Visit Provider Specialist | DX: M16.11 Unilateral primary osteoarthritis, right hip (principal) | CPT/HCPCS: 97110; 97116 ==

== ENCOUNTER → 2023-03-03 08:18 | Outpatient (BNVA) | payer OTHER, SELFPAY | PROVIDERS: Visit Provider Nurse Practitioner | DX: Z96.641 Presence of right artificial hip joint (principal); Z48.89 Encounter for other specified surgical aftercare; M87.051 Idiopathic aseptic necrosis of right femur | CPT/HCPCS: 73502 ==

== ENCOUNTER 2023-03-29 06:00 | Outpatient (RCR) | payer OTHER, SELFPAY | END 2023-04-20 23:59 | disposition home or self-care (01) | LOC: MPT 06:00 | PROVIDERS: PCP Family Medicine; Visit Provider Specialist | DX: M16.11 Unilateral primary osteoarthritis, right hip (principal) | CPT/HCPCS: 97110; 97116 ==

== ENCOUNTER → 2023-03-30 08:32 | Outpatient (BNVA) | payer OTHER, SELFPAY | PROVIDERS: PCP Family Medicine; Visit Provider Nurse Practitioner | DX: Z96.641 Presence of right artificial hip joint (principal); Z48.89 Encounter for other specified surgical aftercare; M87.051 Idiopathic aseptic necrosis of right femur | CPT/HCPCS: 73502 ==

== ENCOUNTER → 2023-04-26 09:07 | Outpatient (BNVA) | payer OTHER, SELFPAY | PROVIDERS: PCP Family Medicine; Visit Provider Nurse Practitioner | DX: Z96.641 Presence of right artificial hip joint (principal); M87.051 Idiopathic aseptic necrosis of right femur | CPT/HCPCS: 73502 ==

== ENCOUNTER → 2023-10-04 09:28 | Outpatient (BNVA) | payer OTHER, SELFPAY | PROVIDERS: PCP Family Medicine; Visit Provider Family Medicine | DX: I10 Essential (primary) hypertension (principal) | CPT/HCPCS: 80053; 80061 ==

== ENCOUNTER 2023-12-21 08:39 | Outpatient (CLI) | payer OTHER, SELFPAY ==
--- NOTE | 2023-12-21 10:00 | MM_ITS ---
WS: [id number] DIAGNOSTIC BILATERAL DIGITAL BREAST TOMOSYNTHESIS MAMMOGRAPHY WITH CAD HISTORY: Z85.3 - Personal history of malignant neoplasm of breast COMPARISON: 11/24/2022, 10/26/2022, 10/22/2021, 05/18/2019 TECHNIQUE: Bilateral craniocaudad, mediolateral oblique, and mediolateral views are submitted with to mosynthesis and SM. Computer aided detection utilized. Breast composition: There are scattered areas of fibroglandular density. Postoperative changes with scar formation along the superior LEFT breast. No recurrent mass. There is mild asymmetry on the MLO projection which resolves on the MLO projection. No suspicious calcificati ons. MM/MM diag BI tomosynthesis [id number] IMPRESSION: BI-RADS: 2 - Benign. FOLLOW UP: 1 Year Follow-up
== END 2023-12-21 08:40 | disposition home or self-care (01) ==
LOC: RAD 08:40
PROVIDERS: PCP Family Medicine; Visit Provider Family Medicine
DX: Z85.3 Personal history of malignant neoplasm of breast (principal); R92.323 Mammographic fibroglandular density, bilateral breasts; Z98.890 Other specified postprocedural states
CPT/HCPCS: 77062; G0279

== ENCOUNTER → 2024-01-03 13:34 | Outpatient (BNVA) | payer OTHER, SELFPAY | PROVIDERS: PCP Family Medicine; Visit Provider Specialist | DX: Z96.641 Presence of right artificial hip joint (principal) | CPT/HCPCS: 73502 ==

== ENCOUNTER → 2024-02-11 08:46 | Outpatient (BNVA) | payer OTHER, SELFPAY | PROVIDERS: PCP Family Medicine; Visit Provider Nurse Practitioner Family | DX: R00.1 Bradycardia, unspecified (principal); I10 Essential (primary) hypertension | CPT/HCPCS: 80053; 84439; 84443; 84481; 85025; 93005 ==

== ENCOUNTER → 2024-03-02 09:09 | Outpatient (BNVA) | payer OTHER, SELFPAY | PROVIDERS: PCP Family Medicine; Referring Provider Family Medicine; Visit Provider Internal Medicine | DX: R07.9 Chest pain, unspecified (principal) | CPT/HCPCS: 93005 ==

== ENCOUNTER 2024-03-20 11:55 | Outpatient (CLI) | payer OTHER, SELFPAY ==
--- NOTE | 2024-03-20 | ECG_ITS ---
Next 1 Interactive Test Date: 2024-03-20 Pat Name: Ilene Smith Department: Room: Gender: Female Compliance Tester: : 1970 Requested By: Mac Tyson Order Number: [id number] Nusrat MD: Mac Tyson M.D. Interpretive Statements EXERCISE MIBI : EXERCISE DATA: The patient was exercised by Sherman protocol. Baseline heart rate was 62 beats per minute. Baseline blood pressure was 139/92millimeters of mercury. Maximal predicted heart rate was 166 beats per minute. Maximum heart rate achieved was 143, which was 86% of the maximum predicted heart rate. Maximum blood pressure was 200/96 millimeters of mercury. Total exercise time was 8 minutes and 25 seconds. Maximum METs achieved was 9.4. The reason for ending the test was maximal effort achieved. The patient complained of shortness of breath during the stress test, which then resolved at the end of the test. ELECTROCARDIOGRAM: BASELINE: Showed sinus rhythm, normal axis, no significant ST-T changes at the baseline noted. [] EXERCISE: At the peak exercise level, [] No significant ST-T changes suggestive of ischemia noted. [] RECOVERY: During the recovery period, heart rate dropped appropriately. No significant ST-T changes in the recovery suggestive of ischemia noted. [] CONCLUSION: 1. Exercise capacity is good. 2. Heart rate response was appropriate 3. Blood pressure response was appropriate 4. Symptoms not suggestive of ischemia. 5. Electrocardiogram portion of the stress test was not suggestive of ischemia. 6. Nuclear scan will be documented separately. Electronically Signed On 03-26-2024 20:38:11 MOLDER P[employer]OVERING by Mac Tyson M.D. [email or web address]
[2024-03-20 12:12] VITALS: BMI 25.4
[2024-03-20 12:45] VITALS: BP 145/82; PULSE 76
== END 2024-03-20 11:56 | disposition home or self-care (01) ==
LOC: CDL 11:57
PROVIDERS: PCP Family Medicine; Visit Provider Internal Medicine
DX: R07.9 Chest pain, unspecified (principal); R06.02 Shortness of breath
CPT/HCPCS: 93017

== ENCOUNTER 2024-05-01 14:12 | Outpatient (CLI) | payer OTHER, SELFPAY | END 2024-05-01 14:13 | disposition home or self-care (01) | LOC: SLEEP 14:13 | PROVIDERS: PCP Family Medicine; Visit Provider Internal Medicine | DX: G47.19 Other hypersomnia (principal) | CPT/HCPCS: G0399 ==

== ENCOUNTER → 2024-09-05 09:00 | Outpatient (BNVA) | payer OTHER, SELFPAY | PROVIDERS: PCP Family Medicine; Visit Provider Family Medicine | DX: I10 Essential (primary) hypertension (principal); R00.1 Bradycardia, unspecified | CPT/HCPCS: 80053; 80061; 84443 ==

== ENCOUNTER 2024-09-06 11:16 | Outpatient (CLI) | payer OTHER, SELFPAY ==
--- NOTE | 2024-09-06 11:38 | ECG_ITS ---
[facility] Date: 2024-09-06 Pat Name: Ilene Smith Department: Room: Gender: Female Director [employer]: : 1970 Requested By: Mac Tyson Order Number: [id number] Nusrat MD: Peace Flores M.D. Interpretive Statements Lung unchanged pre/post procedure; Intraprocedure shortess of breath; Symptoms resoled by discharge PROCEDURE: At the baseline, the patient's blood pressure was 128/82 with a heart rate of 70. The baseline electrocardiogram showed normal sinus rhythm with normal ST-Ts.. The patient exercised for 12 minutes on a standard Sherman protocol. Patient attained a maximum heart rate of 143 beats per minute(86% of the maximum predicted heart rate) with a blood pressure at the peak exercise of 198/81 mm Hg. The EKG at the peak exercise revealed no significant changes. Patient did not have any chest pain or any significant cardiac arrhythmias with the exercise During the recovery phase, there were no new changes. Blood pressure at the end of the recovery phase was 160/75 mm Hg with a heart rate of 86 per minute. CONCLUSION: 1. Normal EKG response to treadmill exercise 2. No exercise-induced chest pain or cardiac arrhythmia 3. Hypertensive response to exercise 4. Good exercise tolerance, attained a maximum of 13.4 METs Electronically Signed On 09-08-2024 22:27:35 CDT by Peace Flores M.D. [email or web address]
[2024-09-06 11:40] VITALS: BMI 27.2
[2024-09-06 12:10] VITALS: BP 160/75; PULSE 80
== END 2024-09-06 11:17 | disposition home or self-care (01) ==
LOC: CDL 11:18
PROVIDERS: PCP Family Medicine; Visit Provider Internal Medicine
DX: R07.9 Chest pain, unspecified (principal); R06.02 Shortness of breath; R93.1 Abnormal findings on diagnostic imaging of heart and coronary circulation
CPT/HCPCS: 93017

== ENCOUNTER → 2024-11-09 15:22 | Outpatient (BNVA) | payer OTHER, SELFPAY | PROVIDERS: PCP Family Medicine; Visit Provider Nurse Practitioner | DX: R30.0 Dysuria (principal); N39.0 Urinary tract infection, site not specified | CPT/HCPCS: 81000; 87086 ==

== ENCOUNTER 2025-01-24 09:28 | Outpatient (CLI) | payer OTHER, SELFPAY ==
--- NOTE | 2025-01-24 10:45 | MM_ITS ---
WS: [id number] DIAGNOSTIC BILATERAL DIGITAL BREAST TOMOSYNTHESIS MAMMOGRAPHY WITH CAD HISTORY: Z12.39 - Encounter for other screening for malignant neoplasm..., History of LEFT breast cancer. COMPARISON: 12/21/2023, 11/24/2022 TECHNIQUE: Bilateral craniocaudad, mediolateral oblique, and mediolateral views are submitted with tomosynthesis and SM. Computer aided detection utilized. Breast composition: The breasts are heterogeneously dense, which may obscure small masses. Volume loss and posttreatment scarring in the upper outer aspect LEFT breast. Mild loss of volume in the LEFT breast. No recurrent mass or suspicious calcifications. MM/MM diag BI tomosynthesis [id number] IMPRESSION: BI-RADS: 2 - Benign FOLLOW UP: 1 Year Follow-up
== END 2025-01-24 09:29 | disposition home or self-care (01) ==
PROVIDERS: PCP Family Medicine; Visit Provider Nurse Practitioner
DX: Z12.31 Encounter for screening mammogram for malignant neoplasm of breast (principal); R92.333 Mammographic heterogeneous density, bilateral breasts; N64.89 Other specified disorders of breast; L90.5 Scar conditions and fibrosis of skin
CPT/HCPCS: 77062; G0279

== ENCOUNTER → 2025-03-14 09:46 | Outpatient (BNVA) | payer OTHER, SELFPAY | PROVIDERS: PCP Family Medicine; Visit Provider Family Medicine | DX: I10 Essential (primary) hypertension (principal) | CPT/HCPCS: 80053 ==